=== PATIENT | male | born 1995 | race African-American/Black ===

== ENCOUNTER 2016-11-22 07:08 | Emergency (ER) | payer SELFPAY ==
[~2016-11-22] VITALS: Ht 165.1 cm; Wt 77.0 kg
[~2016-11-22 07:08] MED LIST: ALBU18HF2 IH
[2016-11-22] MEDS ORDERED: IBUPROFEN 600MG TABLET PO ONE (08:30)
[2016-11-22 08:32] VITALS: BP 116/68
== END 2016-11-22 08:33 | disposition home or self-care (01) ==
LOC: ER 08:06
DX: H72.92 Unspecified perforation of tympanic membrane, left ear (principal); J45.909 Unspecified asthma, uncomplicated
CPT/HCPCS: 99282

== ENCOUNTER 2021-01-26 04:12 | Emergency (ER) | payer MEDICAID ==
[~2021-01-26] VITALS: Ht 165.1 cm; Wt 109.0 kg
[2021-01-26 04:21] VITALS: BP 124/70
[2021-01-26] MEDS ORDERED: KETOROLAC 30MG/ML VIAL IM ONE (05:00)
[2021-01-26 05:33] LABS: CLARITY URINE CLEAR (CLEAR); COLOR URINE YELLOW (YELLOW); KETONES URINE NEGATIVE (NEGATIVE); LEUKOCYTE ESTERASE URINE NEGATIVE (NEGATIVE); NITRITE URINE NEGATIVE (NEGATIVE); OCCULT BLOOD URINE NEGATIVE (NEGATIVE); PH URINE 5.5 (4.5-8.0); PROTEIN URINE NEGATIVE (NEGATIVE); SPECIFIC GRAVITY URINE 1.029 (1.005-1.030)
[2021-01-26] MEDS ORDERED: NAPR-681 MT (06:02)
== END 2021-01-26 06:24 | disposition home or self-care (01) ==
LOC: ER 04:39
DX: M54.5 Low back pain (principal); J45.909 Unspecified asthma, uncomplicated
CPT/HCPCS: 81003; 96372; 99283; J1885